=== PATIENT | female | born 1980 | race Caucasian/White ===

== ENCOUNTER 2016-09-12 11:59 | Outpatient (CLI) | payer SELFPAY ==
[~2016-09-12] VITALS: Ht 152.4 cm; Wt 50.8 kg
[~2016-09-12 11:59] MED LIST: TRAM50TA2 PO
[2016-09-12 12:04] VITALS: BP 138/91
[2016-09-12 12:35] LABS: BASOPHILS % (AUTO) 0 % (0-10); EOSINOPHILS % (AUTO) 1 % (0-10); LYMPHOCYTES # (AUTO) 1.4 X 10^3 (1.0-4.0); LYMPHOCYTES % (AUTO) 21 % (12-44); MEAN CORPUSCULAR HEMOGLOBIN 34 PG (25-34); MEAN CORPUSCULAR HGB CONC 34 G/DL (32-36); MEAN CORPUSCULAR VOLUME 98 FL (80-99); MEAN PLATELET VOLUME 11.4 FL (7.4-10.4); MONOCYTES # (AUTO) 0.5 X 10^3 (0.0-1.0); MONOCYTES % (AUTO) 8 % (0-12); NEUTROPHILS # (AUTO) 4.5 X 10^3 (1.8-7.8); NEUTROPHILS % (AUTO) 70 % (42-75); PLATELET COUNT 180 10^3/uL (130-400); RED BLOOD COUNT 4.31 10^6/uL (4.35-5.85); RED CELL DISTRIBUTION WIDTH 11.6 % (10.0-14.5); WHITE BLOOD COUNT 6.5 10^3/uL (4.3-11.0)
== END 2016-09-12 12:15 | disposition home or self-care (01) ==
LOC: PREOP 11:59
PROVIDERS: ATTEND Obstetrics & Gynecology
DX: Z01.812 Encounter for preprocedural laboratory examination (principal); Z11.2 Encounter for screening for other bacterial diseases; N87.1 Moderate cervical dysplasia; N81.4 Uterovaginal prolapse, unspecified
CPT/HCPCS: 36415; 85025; 86850; 86900; 86901; 87081

== ENCOUNTER 2017-01-15 13:00 | Outpatient (CLI) | payer MEDICAID ==
[~2017-01-15] VITALS: Ht 152.4 cm; Wt 50.8 kg
== END 2017-01-15 16:00 ==
LOC: PREOP 13:00
PROVIDERS: ATTEND Obstetrics & Gynecology
DX: Z01.818 Encounter for other preprocedural examination (principal); N87.1 Moderate cervical dysplasia; N81.4 Uterovaginal prolapse, unspecified

== ENCOUNTER 2017-01-18 05:59 | Day surgery (SDC) | payer MEDICAID ==
[~2017-01-18] VITALS: Ht 152.4 cm; Wt 50.8 kg
[2017-01-18] VITALS (7 sets, daily range): BP systolic 119–146; BP diastolic 83–96
--- OUTSIDE RECORDS SUMMARY | 2017-01-18 06:03 | XMS REPORT ---
Author Author MINESH GARNER Organization [employer] Address Unknown Phone Unavailable Care Team Providers Care Systems Trainer Name Role Phone MINESH GARNER CP Unavailable Allergies No Known Allergies Problems Problem Type Condition ICD-9 Code Onset Dates Condition Status Problem Unspecified constipation 564.00 Active Problem Irregular menstrual cycle 626.4 Active Problem Other disorder of menstruation and other abnormal bleeding from female genital tract 626.8 Active Problem Abdominal pain, left lower quadrant 789.04 Active Assessment Dental examination V72.2 Active Medications No Known Medications Procedures Procedure Coding System Code Date PRDONTAL SCAL&ROOT PLAN 1-3 TEETH CPT-4 D4342 November 19, 2014 PRDONTAL SCAL&ROOT PLAN 1-3 TEETH CPT-4 D4342 November 19, 2014 INTRAORL-PERIAPICAL 1 FILM 13477 CPT-4 D0220 November 19, 2014 INTRAORL-PERIAPICAL EA ADD FILM CPT-4 D0230 November 19, 2014 COMP ORAL EVALUATION - NEW/EST PT CPT-4 D0150 November 19, 2014 PRDONTAL SCAL&ROOT PLAN 1-3 TEETH CPT-4 D4342 November 19, 2014 PANORAMIC FILM SEE ALSO CODE 20810 CPT-4 D0330 November 19, 2014 PRDONTAL SCAL&ROOT PLAN 1-3 TEETH CPT-4 D4342 November 19, 2014 INTRAORL-PERIAPICAL EA ADD FILM CPT-4 D0230 November 19, 2014 INTRAORL-PERIAPICAL EA ADD FILM CPT-4 D0230 November 19, 2014 BITEWINGS - FOUR FILMS CPT-4 D0274 November 19, 2014 INTRAORL-PERIAPICAL EA ADD FILM CPT-4 D0230 November 19, 2014 Results No Known Results Summary Purpose [employer] Submission
--- OUTSIDE RECORDS SUMMARY | 2017-01-18 06:03 | XMS REPORT ---
Author Author SHRUTHI ANDERSON [facility] [place] [employer] Address Unknown Phone Unavailable Care Team Providers Care Geophysical Drafter Name Role Phone SHRUTHI ANDERSON CP Unavailable Allergies, Adverse Reactions, Alerts Substance Reaction Event Type N.K.D.A. Info Not Available Non Drug Allergy Problems Problem Type Condition Code Onset Dates Condition Status Problem Unspecified constipation 564.00 Active Problem Irregular menstrual cycle 626.4 Active Problem Other disorder of menstruation and other abnormal bleeding from female genital tract 626.8 Active Problem Abdominal pain, left lower quadrant 789.04 Active Assessment Physical exam, pre-employment Z02.1 Active Medications No Known Medications Procedures Procedure Coding System Code Date Preventive Care Est Pt. Age 18-39 CPT-4 82736 Mar 08, 2015 TB INTRADERMAL TEST CPT-4 33553 Mar 08, 2015 Vital Signs Date/Time: Mar 08, 2015 Temperature 98.0 F Weight 110 lbs Height 60 in BMI 21.48 Index Blood Pressure Diastolic 62 mmHg Blood Pressure Systolic 102 mmHg Cardiac Monitoring Heart Rate 78 bpm Results No Known Results Summary Purpose [employer] Submission
[2017-01-18] MEDS ORDERED: ONDANSETRON 4 MG/2 ML (SDV) Z0FRAN ONE (06:27)
[2017-01-18] MEDS ORDERED: LIDOCAINE PF 2% 5 ML (XYLOCAINE) VIAL ONE (06:27)
[2017-01-18] MEDS ORDERED: SEVOFLURANE (ULTANE) 15 ML INHAL SOLN ONE ×2 (06:27→11:35)
[2017-01-18] MEDS ORDERED: DEXAMETHASONE 10 MG/ML (DECADRON) 1 ML VIAL ONE (06:27)
[2017-01-18] MEDS ORDERED: proPOfol 200 MG/20 ML (DIPRIVAN) VIAL IV ONE (06:27)
[2017-01-18] MEDS ORDERED: ROCURONIUM 50 MG/5 ML (ZEMURON) VIAL IV ONE ×2 (06:27→10:13)
[2017-01-18] MEDS ORDERED: LACTATED RINGERS 1,000 ML IV ONE ×2 (06:27→10:13)
[2017-01-18] MEDS ORDERED: fentaNYL INJECTION 250 MCG/5 ML AMP ONE (06:27)
[2017-01-18] MEDS ORDERED: MIDAZOLAM 2 MG/2 ML (VERSED) VIAL ONE (06:27)
[2017-01-18 06:39] LABS: BASOPHILS % (AUTO) 0 % (0-10); EOSINOPHILS % (AUTO) 1 % (0-10); LYMPHOCYTES # (AUTO) 1.2 X 10^3 (1.0-4.0); LYMPHOCYTES % (AUTO) 22 % (12-44); MEAN CORPUSCULAR HEMOGLOBIN 34 PG (25-34); MEAN CORPUSCULAR HGB CONC 34 G/DL (32-36); MEAN CORPUSCULAR VOLUME 99 FL (80-99); MEAN PLATELET VOLUME 11.3 FL (7.4-10.4); MONOCYTES # (AUTO) 0.6 X 10^3 (0.0-1.0); MONOCYTES % (AUTO) 11 % (0-12); NEUTROPHILS # (AUTO) 3.4 X 10^3 (1.8-7.8); NEUTROPHILS % (AUTO) 65 % (42-75); PLATELET COUNT 209 10^3/uL (130-400); RED BLOOD COUNT 4.57 10^6/uL (4.35-5.85); RED CELL DISTRIBUTION WIDTH 11.9 % (10.0-14.5); WHITE BLOOD COUNT 5.2 10^3/uL (4.3-11.0)
[2017-01-18] MEDS ORDERED: ceFAZolin 1 GM/NS 50 ML IVPB IV ONE ×2 (07:00)
[2017-01-18] MEDS ORDERED: metroNIDAZOLE 500 MG/100 ML IVPB (PRE-MIX) IV ONE (07:00)
[2017-01-18] MEDS ORDERED: CATHETER FLUSH 10 ML SYR IV PRN (07:00)
[2017-01-18] MEDS: LACTATED RINGERS 1,000 ML IV PRN ×2 (07:04→09:17)
[2017-01-18] MEDS ORDERED: BUP/EPI 0.5% 1:200,000 (MARCAINE) 10ML VIAL IJ ONE (07:21)
--- NOTE | 2017-01-18 08:23 | Progress Note-Pre Operative ---
Pre-Operative Progress Note H&P Reviewed The H&P was reviewed, patient examined and no changes noted. Time Seen by Provider: 08:25 Date H&P Reviewed: Jan 18, 2017 Time H&P Reviewed: 08:15 Pre-Operative Diagnosis: WADE III, uterine prolapse RORY WHITE DO Jan 18, 2017 08:23
--- NOTE | 2017-01-18 09:03 | Operative Report ---
Operative Report Date of Procedure/Surgery Jan 18, 2017 Surgeon (s) RORY WHITE DO Oil Dispatcher (s): Na Post-Operative Diagnosis WADE III Procedure Performed LEEP in surgery Description of Procedure Anesthesia Type: General Estimated blood loss (mL): 20 Specimen(s) collected/removed cervical LEEP biopsy Description of the Procedure with informed consent the patient was taken to the operating room where general anesthesia was found to be adequate. I then placed a speculum in the vagina and the cervix was grasped with a tenaculum. acetic acid was placed. The below findings were seen. I then used a 10x10 mm loop and excised a portion of the most severe area and then sent this for pathology. the base was cauterized and the patient was set up for hysterectomy. There is 2-3+ descensus of the uterus. There is also a small rectocele. frozen section - WADE III with + borders but no invasive cervical caner in the specimen sent. Findings of the Procedure Extensive cervical dysplasia. Website Designer Leep was done (did not excise the entire lesion as I knew that hysterectomy would be accomplished). extensive AW changes, TZ seen. There was mosaicism but no exophytic lesions seen. Allergies and Home Medications Allergies Coded Allergies: No Known Drug Allergies (Verified , 09/05/07) Home Medications Docusate Sodium 100 Mg Capsule, 100 MG PO BID PRN for CONSTIPATION-1ST LINE, #60 Prescribed by: RORY WHITE on 01/18/17 1322 Hydrocodone/Acetaminophen 1 Each Tablet, 1-2 EA PO Q6H PRN for PAIN-MODERATE TO SEVERE, #45 Prescribed by: RORY WHITE on 01/18/17 1322 Ibuprofen 600 Mg Tablet, 600 MG PO Q6H PRN for PAIN-MILD, #60 Prescribed by: RORY WHITE on 01/18/17 1322 Simethicone 80 Mg Tab.chew, 40 MG PO TID PRN for INDIGESTION, #60 Prescribed by: RORY WHITE on 01/18/17 Marla2 RORY WHITE DO Jan 18, 2017 09:03
[2017-01-18] MEDS ORDERED: HYDROmorphone (DILAUDID) 2 MG/ML VIAL ONE (11:28)
[2017-01-18] MEDS ORDERED: morphine INJ 10 MG/ML 1ML (SYR OR VIAL) ONE (11:28)
[2017-01-18] MEDS: KETOROLAC 30 MG/ML VIAL IV PRN ×2 (11:30→18:24)
[2017-01-18] MEDS ORDERED: LACTATED RINGERS 1,000 ML IV SCH (11:35)
--- NOTE | 2017-01-18 11:44 | Operative Report ---
Operative Report Date of Procedure/Surgery Jan 18, 2017 Surgeon (s) RORY WHITE DO Appliance Counselor (s): LIONEL Rawls Post-Operative Diagnosis Cervical dysplasia/WADE III, enteropelvic adhesions, extensive, obliterated posterior culdesac, evidence of bilateral tubal interruptions, Procedure Performed RaTH, bilateral salpingectomy, extensive adhesiolysis (1 1/2 hours) Description of Procedure Anesthesia Type: General Estimated blood loss (mL): 150 Specimen(s) collected/removed uterus, bilateral tubes, cervical leep sent previously Description of the Procedure A Davis catheter was placed. A speculum was placed in the vagina. The cervix was visualized and the anterior lip was grasped with a sharp toothed tenaculum. The uterus was sounded and depth was approximately 10 centimeters. I placed the Michelle device. And then set the Michelle to 10 cm and a 3.0 cm collar was advanced over the cervix. I inserted the Michelle without difficulty, inflating the balloon and securing it around the fornix of the cervix. The collar was then secured with sutures at 12 o'clock. Attention was then turned to the patient's abdomen. A supraumbilical incision was made about 8 mm. A Veress needle was inserted and intraabdominal placement was confirmed with a drop in pressure and the saline drop test. I then insufflated the abdomen to a maximum of 15 mmHg with warmed CO2 gas. I then placed a 8 mm trocar and then the Da Dominguez camera and intraperitoneal placement was confirmed. The above menstioned findings were seen. I then determined the procedure could be continued robotically. The first robotic port was placed about 12 cm lateral to the right and left of the umbilical placement and slightly inferior. These are both 8 mm trocars. These were placed under direct visualization of the laparoscope. 0.25% Marcaine was injected prior to placement of all trocars. When all placements were confirmed, the patient was placed in steep Trendelenburg allowing adequate visualization and the robot was brought in for docking. The docking was accomplished without difficulty. A survey of the pelvis confirmed the above mentioned findings. I then took over the command of the robot utilizing the Bipolar forceps and monopolar walter. Initially I had to take down the adhesions and dissect out the tubes and ovaries. Once this was completed, I performed bilateral salpingectomy by dissecting along the mesosalpinx bilaterally and then transecting at the cornu. I was able to visualize the round ligaments bilaterally and grasped them and cauterized with bipolar cautery and then cut with my walter. At this point, I then did bilateral salpingectomy. I incised the mesosalpinx bilaterally. I then moved to the uteroovarian ligaments. I sealed the vessel and transected bilaterally using the bipolar cautery and then cut with the monopolar walter. I then moved my dissection to the posterior leaves of the broad ligament. I dissected the posterior leaves of the broad ligament off the uterine arteries skeletonizing them bilaterally. I then took a second clamp with the bipolar cautery and with the walter, transected the vessels away from the lateral aspect to the cervical stroma. I dissected the anterior peritoneum off the lower uterine segment. I continually pushed the bladder back and I took excessively great care and I was eventually able to dissect the vesicouterine peritoneum off the lower uterine segment. I then dissected in a V fashion towards the midline between the uterosacral ligaments. This allowed me to skeletonize the uterine vessels bilaterally. The balloon on the MICHELLE was insufflated. This allowed me to see the MICHELLE circumferentially. I then performed a colpotomy anteriorly and then amputate with cervix away from the vaginal fornix. I then continued the colpotomy circumferentially. Once this was performed, the respiratory assistant removed the uterus and the tubes through the vagina. A sponge was left in the vagina to maintain pneumoperitoneum. I then began closure of the vaginal cuff. I closed the apices of the vaginal cuff with 2-0 Vicryl V lock sutures with a colposuspension through the uterosacral ligaments. This suspended the apices of the vaginal cuff. I extended this to the midline from both sides and overlapped the V lock sutures in the midline. Excellent closure is noted and hemostasis is achieved. All the needles were removed from the patient's abdomen. Now, the robotic instruments were removed and the robot was docked back to laparoscopy. The pelvis was irrigated. At this point I repeated an exam of the pelvis laparoscopically. The pelvis was irrigated. There was no active bleeding noted. Bilateral ureters were seen the entire time during the surgery and were peristalsing. The trocars were removed under direct visualization. The laparoscopic sites were visualized and found to be hemostatic. The trocar sites were injected with 0.25% Marcaine. I closed the skin incisions were closed with 4-0 Monocryl in a subcuticular fashion and then with Dermabond. Op sites were placed over the incision sites. The instruments were removed from the vagina and I noted there were no abrasions. Sponge, lap, needle and instrument counts correct times two. Findings of the Procedure LEEP without evidence of invasive cancer. Confirmed WADE III Extensive peritubal adhesions and obliteration of the culdesac with adhesions. Also scarring of the omentum to the right pelvic side wall overlying the appendix. The appendix was scarred to the side wall but there was no evidence of infection. Once dissection of the adhesions was completed, the ovaries and tubes appeared normal. Benign cysts on the ovaries. No evidence of endometriosis. Evidence of tubal interruption bilaterally with clips. The right tube was extended into the pelvis with a cystic lesion noted on the posterior uterus near the cervix. However, once dissection was completed, this was noted to be contiguous with the tube on the right and had a clip attached consistent with previous tubal interruption. Allergies and Home Medications Allergies Coded Allergies: No Known Drug Allergies (Verified , 09/05/07) Home Medications Docusate Sodium 100 Mg Capsule, 100 MG PO BID PRN for CONSTIPATION-1ST LINE, #60 Prescribed by: RORY WHITE on 01/18/17 1322 Hydrocodone/Acetaminophen 1 Each Tablet, 1-2 EA PO Q6H PRN for PAIN-MODERATE TO SEVERE, #45 Prescribed by: RORY WHITE on 01/18/17 1322 Ibuprofen 600 Mg Tablet, 600 MG PO Q6H PRN for PAIN-MILD, #60 Prescribed by: RORY WHITE on 01/18/17 1322 Simethicone 80 Mg Tab.chew, 40 MG PO TID PRN for INDIGESTION, #60 Prescribed by: RORY WHITE on 01/18/17 Marla2 RORY WHITE DO Jan 18, 2017 11:44
[2017-01-18] MEDS ORDERED: HYDROcodone/APAP 7.5 MG/325 MG (LORTAB, LORCET PLUS) TABLET PO PRN (11:45)
[2017-01-18] MEDS ORDERED: ANTACID SUSP 30 ML UDC (MYLANTA) PO PRN (11:45)
[2017-01-18] MEDS ORDERED: SIMETHICONE 80 MG (MYLICON) CHEW PO PRN (11:45)
[2017-01-18] MEDS ORDERED: KETOROLAC 30 MG/ML VIAL IVP PRN (11:45)
[2017-01-18] MEDS ORDERED: DOCUSATE SODIUM 100 MG (COLACE) CAP PO PRN (11:45)
[2017-01-18] MEDS ORDERED: HYDROmorphone (DILAUDID) 2 MG/ML VIAL IVP PRN (11:45)
[2017-01-18] MEDS ORDERED: ONDANSETRON 4 MG/2 ML (SDV) Z0FRAN IV PRN (11:45)
[2017-01-18 12:23] LABS: ANION GAP 12 MMOL/L (5-14); BLOOD UREA NITROGEN 7 MG/DL (7-18); BUN/CREATININE RATIO 9; CALCIUM 8.8 MG/DL (8.5-10.1); CARBON DIOXIDE 20 MMOL/L (21-32); CHLORIDE 105 MMOL/L (98-107); CREATININE SERUM 0.74 MG/DL (0.60-1.30); GFR ESTIMATED > 60; GLUCOSE 126 MG/DL (70-105); POTASSIUM 4.3 MMOL/L (3.6-5.0); SODIUM 137 MMOL/L (135-145)
[2017-01-18] MEDS ORDERED: ONDANSETRON 4 MG/2 ML (SDV) Z0FRAN IVP ONE (13:15)
[2017-01-18] MEDS ORDERED: DOCU100C37 PO (13:22)
[2017-01-18] MEDS ORDERED: SIME80TA16 PO (13:22)
[2017-01-18] MEDS ORDERED: HYDR-3816 PO (13:22)
[2017-01-18] MEDS ORDERED: IBUP-1773 PO (13:22)
--- NOTE | 2017-01-18 13:24 | Discharge Inst-Women's Service ---
Discharge Inst-Women's Serv Depart Medication/Instructions New, Converted or Re-Newed RX: RX on Chart Final Diagnosis cervical dysplasia/WADE III Enteropelvic adhesions, extensive uterine prolapse Consults/Follow Up Additional Follow Up: Yes (1 week with Samantha for incision check and 8-10 weeks for Post operative exam) Activity Activity: Activity as Tolerated (no lifting over 25 lbs. NOTHING in the vagina ) Driving Instructions: No Driving for 1 Week NO SMOKING: NO SMOKING Nothing Inside Vagina: No Douching, No Dunn (NOTHING in the vagina until after cleared at 8-10 week visit ), No Tampons Diet Discharge Diet: No Restrictions Symptoms to Report to : Bleeding Excessive, Pain Increased, Fever Over 101 Degrees F, Vaginal Bleeding Increase, Vaginal Discharge Foul For Any Problems or Questions: Contact Your Physician Skin/Wound Care Infection Signs and Symptoms: Increased Redness, Foul Odor of Wound, Increased Drainage, Skin Itchy or Has a Rash, Increased Swelling, Temperature Above 101 F Operative Area Clean and Dry: Keep Incision Clean/Dry Stitches/Blanchard/Dermabond: Dermabond Bathing Instructions: RORY Naranjo DO Jan 18, 2017 13:24
[2017-01-18] MEDS ORDERED: NS IV 1000 ML 1,000 ML IV SCH (14:45)
[2017-01-19] MEDS ORDERED: IBUPROFEN 600 MG (MOTRIN) TAB PO ONE (00:06)
[2017-01-19 00:17] VITALS: BP 147/93
[2017-01-19] MEDS: IBUPROFEN 600 MG (MOTRIN) TAB PO PRN ×2 (00:17→06:16)
[2017-01-19 06:32] LABS: ANION GAP 8 MMOL/L (5-14); BLOOD UREA NITROGEN 5 MG/DL (7-18); BUN/CREATININE RATIO 7; CALCIUM 8.3 MG/DL (8.5-10.1); CARBON DIOXIDE 22 MMOL/L (21-32); CHLORIDE 108 MMOL/L (98-107); CREATININE SERUM 0.69 MG/DL (0.60-1.30); GFR ESTIMATED > 60; GLUCOSE 92 MG/DL (70-105); POTASSIUM 3.8 MMOL/L (3.6-5.0); SODIUM 138 MMOL/L (135-145)
[2017-01-19 08:30] VITALS: BP 115/74
[2017-01-19 09:45] VITALS: BP 115/74
[2017-01-20] MEDS ORDERED: INFLUENZA TRIvalent 2017-2018 0.5 ML/45 MCG SYR IM ONE (09:00)
--- NOTE | 2017-01-20 21:07 | Anesthesia-General Post-Op ---
General Patient Condition Mental Status/LOC: Same as Preop Cardiovascular: Satisfactory Nausea/Vomiting: Absent Respiratory: Satisfactory Pain: Controlled Complications: Absent Post Op Complications Complications None Follow Up Care/Instructions Patient Instructions None needed. Anesthesia/Patient Condition Patient Condition Patient is doing well, no complaints, stable vital signs, no apparent adverse anesthesia problems. No complications reported per nursing. D/C home per [facility] [place] Criteria: Yes ZAYDA THOMPSON CRNA Jan 20, 2017 21:07
== END 2017-01-19 09:45 | disposition home or self-care (01) ==
LOC: SDC 05:59 → WS 12:45 → SDC 01-19 09:45
PROVIDERS: ATTEND Obstetrics & Gynecology
DX: N87.1 Moderate cervical dysplasia (principal); N81.4 Uterovaginal prolapse, unspecified; N73.6 Female pelvic peritoneal adhesions (postinfective); N80.0 Endometriosis of uterus; F17.210 Nicotine dependence, cigarettes, uncomplicated
CPT/HCPCS: 36415; 80048; 84703; 85025; 86850; 86900; 86901; 87081; 88307; 88309; 88331; 88332; 94664

== ENCOUNTER 2020-11-29 10:29 | Emergency (ER) | payer MEDICAID ==
[~2020-11-29] VITALS: Ht 152.4 cm; Wt 45.4 kg
[~2020-11-29 10:29] MED LIST changes: +DOCU100C37 PO; +HYDR-34 PO; +IBUP-1773 PO; +SIME80TA16 PO
[2020-11-29 11:05] LABS: BASOPHILS % (AUTO) 1 % (0-10); EOSINOPHILS % (AUTO) 1 % (0-10); HEMATOCRIT 30 % (35-52); HEMOGLOBIN 10.4 g/dL (11.5-16.0); LYMPHOCYTES % (AUTO) 16 % (12-44); MEAN CORPUSCULAR HEMOGLOBIN 37 pg (25-34); MEAN CORPUSCULAR HGB CONC 35 g/dL (32-36); MEAN CORPUSCULAR VOLUME 104 fL (80-99); MEAN PLATELET VOLUME 10.4 fL (9.0-12.2); MONOCYTES # (AUTO) 0.5 10^3/uL (0.0-1.0); MONOCYTES % (AUTO) 8 % (0-12); NEUTROPHILS # (AUTO) 4.8 10^3/uL (1.8-7.8); NEUTROPHILS % (AUTO) 75 % (42-75); PLATELET COUNT 191 10^3/uL (130-400); WHITE BLOOD COUNT 6.4 10^3/uL (4.3-11.0)
[2020-11-29 11:07] LABS: CLARITY,URINE CLEAR; COLOR,URINE YELLOW; GLUCOSE, URINE (UA) TRACE (NEGATIVE); KETONES,URINE 1+ (NEGATIVE); LEUKOCYTE ESTERASE ,URINE 1+ (NEGATIVE); NITRITE,URINE NEGATIVE (NEGATIVE); PH,URINE 5.5 (5-9); PROTEIN,URINE 2+ (NEGATIVE)
[2020-11-29 11:20] LABS: ALBUMIN 4.2 GM/DL (3.2-4.5); CHLORIDE 103 MMOL/L (98-107); POTASSIUM 3.7 MMOL/L (3.6-5.0); SODIUM 141 MMOL/L (135-145)
[2020-11-29 11:22] LABS: CALCIUM 9.5 MG/DL (8.5-10.1)
[2020-11-29 11:23] LABS: AMPHETAMINE SCREEN, URINE NEGATIVE (NEGATIVE); BARBITURATE SCREEN URINE NEGATIVE (NEGATIVE); BENZODIAZEPINES SCREEN URINE NEGATIVE (NEGATIVE); CANNABINOID SCREEN, URINE NEGATIVE (NEGATIVE); COCAINE SCREEN URINE NEGATIVE (NEGATIVE); METHADONE STAT NEGATIVE (NEGATIVE); METHAMPHETAMINE SCREEN URINE S NEGATIVE (NEGATIVE); OPIATE SCREEN URINE NEGATIVE (NEGATIVE); OXYCODONE STAT NEGATIVE (NEGATIVE); PROPOXYPHENE STAT NEGATIVE (NEGATIVE); TRICYCLIC ANTIDEPRESSANTS SCRE NEGATIVE (NEGATIVE)
[2020-11-29 11:23] LABS: GLUCOSE 83 MG/DL (70-105); TOTAL PROTEIN 7.5 GM/DL (6.4-8.2)
[2020-11-29 11:24] LABS: CARBON DIOXIDE 23 MMOL/L (21-32)
[2020-11-29 11:25] LABS: BILIRUBIN,TOTAL 0.4 MG/DL (0.1-1.0)
[2020-11-29 11:26] LABS: ALKALINE PHOSPHATASE 80 U/L (40-136)
[2020-11-29 11:27] LABS: CREATININE SERUM 0.67 MG/DL (0.60-1.30); GFR ESTIMATED 97
--- NOTE | 2020-11-29 11:27 | Diagnostic Imaging Report ---
EXAMINATION: CT head and CT cervical spine without contrast. TECHNIQUE: Multiple contiguous axial images were obtained through the brain and cervical spine without the use of intravenous contrast. Sagittal and coronal reformations through the cervical spine were then performed. All CT scans use one or more of the following dose optimizing techniques: Automated exposure control, MA and/or KvP adjustment based on patient size and exam type or iterative reconstruction. HISTORY: Neurologic deficit. COMPARISON: None available. FINDINGS: The negron-white matter differentiation is normal. No mass effect or midline shift. The ventricles are normal in size and configuration. Basilar cisterns are patent. There are no intra- or extra-axial fluid collections. There is no intracranial hemorrhage. The orbits are normal. Paranasal sinuses are normal. Mastoid air cells are clear. No soft tissue abnormality is seen. No osseous lesions or fractures are seen. The alignment of the cervical spine is normal. No fracture is seen. Vertebral body heights are normal. The craniocervical junction is normal. There is no degenerative disease in the cervical spine. There is no spinal canal stenosis. No soft tissue abnormality is seen in the neck. Limited views of the superior thorax are normal. IMPRESSION: 1. No acute intracranial abnormality. 2. No cervical spine fracture. Dictated by: Dictated on workstation # [id number]
[2020-11-29 11:28] LABS: BUN/CREATININE RATIO 9
[2020-11-29 11:29] LABS: ALANINE AMINOTRANSFERASE 33 U/L (0-55)
[2020-11-29 11:35] LABS: BACTERIA,URINE LARGE /HPF; RBC,URINE TNTC /HPF; WBC,URINE TNTC /HPF
--- NOTE | 2020-11-29 11:35 | Diagnostic Imaging Report ---
INDICATION: Acute onset numbness, pain FINDINGS: The lungs are clear. There is no failure, effusion or pneumothorax. Cardiomediastinal and hilar contours normal. No chest wall pathology. The visualized bowel gas pattern normal. IMPRESSION: Unremarkable frontal view of the chest Dictated by: Dictated on workstation # [id number]
[2020-11-29 11:36] LABS: HYALINE CASTS, URINE >50 /LPF; SQUAMOUS EPITHELIAL CELL,UR >50 /HPF
[2020-11-29 11:49] LABS: TSH (THYROID ANALYZER) 0.95 UIU/ML (0.35-4.94)
[2020-11-29 11:57] LABS: BILIRUBIN,URINE 1+ (NEGATIVE)
[2020-11-29] MEDS ORDERED: HOLD METFORMIN - RECEIVED CONTRAST 20 ML VIAL IV SCH (12:45)
[2020-11-29] MEDS ORDERED: IOHEXOL 350 MG/ML 100 ML (OMNIPAQUE 350) VIAL IV ONE (12:45)
[2020-11-29] MEDS ORDERED: NS 100 ML (IVPB) BAG IV ONE (12:45)
[2020-11-29] MEDS ORDERED: CATHETER FLUSH 10 ML SYR IV PRN (12:45)
[2020-11-29 13:00] LABS: FIBRIN DEGRADATION PRODUCTS 0.6 UG/ML (0.00-0.49); INR 0.9 (0.8-1.4)
--- NOTE | 2020-11-29 14:21 | Diagnostic Imaging Report ---
PROCEDURE: CT angiography Chest TECHNIQUE: After intravenous administration of contrast, thin section axial CT angiography of the chest was performed. 3D MIP reconstructions were made. All CT scans use one or more of the following dose optimizing techniques: automated exposure control, MA and/or KvP adjustment based on a patient size and exam type, or iterative reconstruction. INDICATION: Acute onset numbness and pain, high probability of PE COMPARISON: None available. FINDINGS: Vasculature: No pulmonary emboli. No CT evidence of pulmonary hypertension or right ventricular strain. Thoracic aorta is normal in caliber. No aortic dissection or pseudoaneurysm. Heart and mediastinum: Visualized thyroid is normal. No supraclavicular, axillary, or intra-thoracic lymphadenopathy. The heart is normal in size without pericardial effusion. Pleura: No pleural effusion or pneumothorax. Lungs and airway: No endoluminal lesion in the trachea or central bronchi. No pulmonary mass, nodule or consolidation. Upper abdomen: Allowing for the phase of contrast, no acute abnormality in the upper abdomen is seen. Musculoskeletal: No concerning osseous lesion. IMPRESSION: 1. No acute cardiopulmonary process. Specifically, no pulmonary emboli or acute aortic syndrome. Dictated by: Dictated on workstation # [id number]
--- NOTE | 2020-11-29 14:53 | ED Neurological Problem ---
General Chief Complaint: Neurological Problems Stated Complaint: R SIDE NUMBNESS Nursing Triage Note: PT TO RM 7 PER WC W C/O SUDDEN NUMBNESS & POOR ROM TO RT ANKLE. PT ALSO C/O NUMBNESS OF RT PINKY THAT GOES DOWN THE SIDE OF HER HAND. PT REPORTS SYMPTOMS SX SHE WOKE UP ON SATURDAY MORNING. PT RECALLS FEELING NORMAL SATURDAY NIGHT BEFORE BED. PT SAW CHIROPRACTOR YESTERDAY WHO ADJUSTED HER NECK AND BACK. PT STATES CHIROPRACTOR RECOMMENDED PT COME TO ED FOR FURTHER EVALUATION. PT DENIES INJURY, PAIN, SLURRED SPEECH, AND VISION CHANGES. Source: patient Exam Limitations: no limitations History of Present Illness Date Seen by Provider: Nov 29, 2020 Time Seen by Provider: 14:49 Initial Comments This 40-year-old woman presents to the emergency room with last known well time of November 25. She woke up on the next morning with right sided foot drop and numbness in the foot and right lateral lower leg. At the same time she also noted numbness in the ulnar aspect of the right hand. She has had some difficulty walking as the foot drop makes her susceptible to tripping. She is notably tachycardic which she states is from anxiety. She denies any drug or alcohol use. She denies any symptoms of infectious illness such as fever, cough, diarrhea, rashes, etc. She presented to her chiropractor for adjustment before coming to the emergency room. Her primary care provider is Dr. Morataya. Her obstetrical providers are Dr. Martins and Dr. White. Her chiropractor is Dr. Francesco Arora. Allergies and Home Medications Allergies Coded Allergies: No Known Drug Allergies (Verified , 09/05/07) Home Medications Cephalexin 500 Mg Tablet, 500 MG PO TID Prescribed by: NORMA ROSAS on 11/29/20 1536 Docusate Sodium 100 Mg Capsule, 100 MG PO BID PRN for CONSTIPATION-1ST LINE Prescribed by: RORY WHITE on 01/18/17 1322 Hydrocodone Bit/Acetaminophen 1 Each Tablet, 1-2 EA PO Q6H PRN for PAIN-MODERATE TO SEVERE Prescribed by: RROY WHITE on 01/18/17 1322 Ibuprofen 600 Mg Tablet, 600 MG PO Q6H PRN for PAIN-MILD Prescribed by: RORY WHITE on 01/18/17 1322 Simethicone 80 Mg Tab.chew, 40 MG PO TID PRN for INDIGESTION Prescribed by: RORY WHITE on 01/18/17 1322 Patient Home Medication List Home Medication List Reviewed: Yes Past Ufrcazf-[id number]-[id number] Hx Patient Social History Tobacco Use?: Yes Tobacco type used: Cigarettes Smoking Status: Current Everyday Smoker Substance use?: No Alcohol Use?: Yes Alcohol Frequency: Once in a while Pt feels they are or have been: No Immunizations Up To Date Tetanus Booster (TDap): Unknown First/Initial COVID19 Vaccinat: 07/21/2020 COVID19 Vaccine T[employer] Retreader: [facility] Seasonal Allergies Seasonal Allergies: Yes Past Medical History Surgeries: Yes Tubal Ligation Respiratory: No Cardiac: No Neurological: No Reproductive Disorders: Yes Genitourinary: No Gastrointestinal: No Musculoskeletal: No Endocrine: No HEENT: No Cancer: No Psychosocial: No Integumentary: No Blood Disorders: No Family Medical History Not obtainable due to adoption Physical Exam Vital Signs Vital Signs - First Documented 11/29/20 10:30 Temp 36.9 Pulse 130 Resp 20 B/P (MAP) 118/102 (107) Pulse Ox 98 O2 Delivery Room Air Capillary Refill : Less Than 3 Seconds Height, Weight, BMI Height: 5'0.00" Weight: 112lbs. 0.0oz. [id number]; 19.00 BMI Method:Stated Progress/Results/Core Measures Results/Orders Lab Results Laboratory Tests Test 11/29/20 10:37 11/29/20 10:50 11/29/20 10:55 Range/Units Glucometer 99 70-110 MG/DL Urine Color YELLOW Urine Clarity CLEAR Urine pH 5.5 5-9 Urine Specific [place] >=1.030 1.016-1.022 Urine Protein 2+ H NEGATIVE Urine Glucose (UA) TRACE H NEGATIVE Urine Ketones 1+ H NEGATIVE Urine Nitrite NEGATIVE NEGATIVE Urine Bilirubin 1+ H NEGATIVE Urine Urobilinogen 1.0 < = 1.0 MG/DL Urine Leukocyte Esterase 1+ H NEGATIVE Urine RBC (Auto) 3+ H NEGATIVE Urine RBC TNTC H /HPF Urine WBC TNTC H /HPF Urine Squamous Epithelial Cells >50 H /HPF Urine Crystals NONE /LPF Urine Bacteria LARGE H /HPF Urine Casts NONE /LPF Urine Hyaline Casts >50 H /LPF Urine Mucus LARGE H /LPF Urine Culture Indicated YES Urine Opiates Screen NEGATIVE NEGATIVE Urine Oxycodone Screen NEGATIVE NEGATIVE Urine Methadone Screen NEGATIVE NEGATIVE Urine Propoxyphene Screen NEGATIVE NEGATIVE Urine Barbiturates Screen NEGATIVE NEGATIVE Ur Tricyclic Antidepressants Screen NEGATIVE NEGATIVE Urine Phencyclidine Screen NEGATIVE NEGATIVE Urine Amphetamines Screen NEGATIVE NEGATIVE Urine Methamphetamines Screen NEGATIVE NEGATIVE Urine Benzodiazepines Screen NEGATIVE NEGATIVE Urine Cocaine Screen NEGATIVE NEGATIVE Urine Cannabinoids Screen NEGATIVE NEGATIVE White Blood Count 6.4 4.3-11.0 10^3/uL Red Blood Count 2.85 L 3.80-5.11 10^6/uL Hemoglobin 10.4 L 11.5-16.0 g/dL Hematocrit 30 L 35-52 % Mean Corpuscular Volume 104 H 80-99 fL Mean Corpuscular Hemoglobin 37 H 25-34 pg Mean Corpuscular Hemoglobin Concent 35 32-36 g/dL Red Cell Distribution Width 12.9 10.0-14.5 % Platelet Count 191 130-400 10^3/uL Mean Platelet Volume 10.4 9.0-12.2 fL Immature Granulocyte % (Auto) 0 % Neutrophils (%) (Auto) 75 42-75 % Lymphocytes (%) (Auto) 16 12-44 % Monocytes (%) (Auto) 8 0-12 % Eosinophils (%) (Auto) 1 0-10 % Basophils (%) (Auto) 1 0-10 % Neutrophils # (Auto) 4.8 1.8-7.8 10^3/uL Lymphocytes # (Auto) 1.0 1.0-4.0 10^3/uL Monocytes # (Auto) 0.5 0.0-1.0 10^3/uL Eosinophils # (Auto) 0.0 0.0-0.3 10^3/uL Basophils # (Auto) 0.0 0.0-0.1 10^3/uL Immature Granulocyte # (Auto) 0.0 0.0-0.1 10^3/uL Prothrombin Time 12.0 L 12.2-14.7 SEC INR Comment 0.9 0.8-1.4 Activated Partial Thromboplast Time 30 24-35 SEC D-Dimer 0.60 H 0.00-0.49 UG/ML Sodium Level 141 135-145 MMOL/L Potassium Level 3.7 3.6-5.0 MMOL/L Chloride Level 103 98-107 MMOL/L Carbon Dioxide Level 23 21-32 MMOL/L Anion Gap 15 H 5-14 MMOL/L Blood Urea Nitrogen 6 L 7-18 MG/DL Creatinine 0.67 0.60-1.30 MG/DL Estimat Glomerular Filtration Rate 97 BUN/Creatinine Ratio 9 Glucose Level 83 70-105 MG/DL Calcium Level 9.5 8.5-10.1 MG/DL Corrected Calcium 9.3 8.5-10.1 MG/DL Total Bilirubin 0.4 0.1-1.0 MG/DL Aspartate Amino Transf (AST/SGOT) 71 H 5-34 U/L Alanine Aminotransferase (ALT/SGPT) 33 0-55 U/L Alkaline Phosphatase 80 40-136 U/L Troponin I < 0.028 <0.028 NG/ML Total Protein 7.5 6.4-8.2 GM/DL Albumin 4.2 3.2-4.5 GM/DL TSH [place] Testing 0.95 0.35-4.94 UIU/ML My Orders Orders - NORMA SCHULTZ MD Cbc With Automated Diff (11/29/20 10:46) Protime With Inr (11/29/20 10:46) Partial Thromboplastin Time (11/29/20 10:46) Comprehensive Metabolic Panel (11/29/20 10:46) Fibrin Degradation Products (11/29/20 10:46) Troponin I (11/29/20 10:46) Ua Culture If Indicated (11/29/20 10:46) Chest 1 View, Ap/Pa Only (11/29/20 10:46) Ekg Tracing (11/29/20 10:46) Nothing By Mouth (11/29/20 Lunch) Accucheck Stat ONCE (11/29/20 10:46) Ed Iv/Invasive Line Start (11/29/20 10:46) Ed Iv/Invasive Line Start (11/29/20 10:46) Vital Signs Stroke Patient Q15M (11/29/20 10:46) O2 (11/29/20 10:46) Intake & Output 06,14,22 (11/29/20 10:46) Monitor-Rhythm Ecg Trace Only (11/29/20 10:46) Dysphagia Screening Tool (11/29/20 10:46) Drug Screen Stat (Urine) (11/29/20 10:46) Thyroid Analyzer (11/29/20 10:46) Ct Head/Cervical Spine Wo (11/29/20 10:46) Urine Culture (11/29/20 10:50) Ct Angio Chest W (11/29/20 12:41) Iohexol Injection (Omnipaque 350 Mg/Ml 1 (11/29/20 12:45) Received Contrast (Hold Metformin- Contr (11/29/20 12:45) Sodium Chloride Flush (Catheter Flush Sy (11/29/20 12:45) Ns (Ivpb) (Sodium Chloride 0.9% Ivpb Bag (11/29/20 12:45) Ceftriaxone (Rocephin) (11/29/20 15:00) Medications Given in ED Current Medications Medications Dose Ordered Sig/Flores Route Start Time Stop Time Status Last Admin Dose Admin Ceftriaxone Sodium 1000 mg/ Sterile Water 10 ml @ 200 mls/hr ONCE ONCE IV 11/29/20 15:00 11/29/20 15:02 DC 11/29/20 15:04 200 MLS/HR Iohexol 75 ml ONCE ONCE IV 11/29/20 12:45 11/29/20 12:47 DC 11/29/20 13:10 50 ML Sodium Chloride 10 ml NEEDED PRN IV 11/29/20 12:45 11/29/20 15:54 DC 11/29/20 13:10 10 ML Sodium Chloride 100 ml ONCE ONCE IV 11/29/20 12:45 11/29/20 12:47 DC 11/29/20 13:10 80 ML Vital Signs/I&O 11/29/20 11/29/20 10:30 15:30 Temp 36.9 Pulse 130 101 Resp 20 18 B/P (MAP) 118/102 (107) 126/106 Pulse Ox 98 98 O2 Delivery Room Air Room Air Blood Pressure Mean: 107 FSBG Bedside Testing Finger Stick Blood Glucose: 99 Blood Glucose Action Taken: DR. SCHULTZ NOTIFIED Progress Progress Note : Progress Note Initial noncontrast CT of the head and cervical spine were unremarkable. I discussed the symptoms with Dr. Nichole, neurologist at [facility]. He recommended MRI of the brain without contrast as well as MRA of the brain w/o contrast and MRA of the neck with contrast. After discussion with Dr. Figueredo, we determine based on the quality of our instrumentation CT angiogram would be a better study for evaluation of the vasculature of head and neck. Unfortunately, due to provider error, a CT angiogram was performed of the chest rather than head and neck. No abnormalities were seen on the visualized portions of the carotid arteries on this study. Patient was notified of the situation and offered CT angiogram of the head and neck tomorrow as well as MRI imaging during the ER visit. CT angio of the head and neck cannot be obtained today due to contrast dosing l imitations. After discussion of risks and benefits of options, patient wished to forego all further imaging in the emergency room citing anxiety as the primary reason. She was offered Ativan to help facilitate imaging but she declined. Risks of leaving the hospital without understanding the etiology of her symptoms were discussed. She is aware that there are some potentially very dangerous risks, and she expresses understanding. Patient was found to have urinary tract infection and was treated with Rocephin prior to discharge. Initial ECG Impression Date: Nov 29, 2020 Initial ECG Impression Time: 11:39 Initial ECG Rate: 93 Initial ECG Rhythm: Normal Sinus Comment Sinus rhythm with no ST elevation or depression. No axis deviation. NM interval 108 ms. Departure Impression Primary Impression: Right foot drop Additional Impressions: Right hand paresthesia Urinary tract infection Qualified Codes: N39.0 - Urinary tract infection, site not specified Disposition: 01 HOME, SELF-CARE Condition: Improved Departure-Patient Inst. Decision time for Depature: 14:53 [place]: [facility] [place] Care Physician Patient Instructions: Foot Drop, Paresthesia (DC), Urinary Tract Infection, Adult (DC) Add. Discharge Instructions: Drink plenty of clear liquids to stay well-hydrated. You appear a bit dry on your urine specimen. Increase your intake of water and other clear liquids. Complete your antibiotics as prescribed for urinary tract infection. Follow-up with your primary care provider as soon as possible. Follow-up should be within 1 week. You need to discuss several things with your primary care provider includin) Review of your urine culture to ensure the antibiotic you are taking is appropriate for the bacteria that is causing your infection after the cultures are resulted. 2) You also need to have a repeat urine specimen collected after you finish antibiotics to ensure the blood and infection clears. 3) You should additionally discuss further work-up for your neurologic symptoms which might include MRI of the head and/or CT angiogram of the head and neck. Take aspirin 81 mg daily until otherwise instructed. Work toward quitting smoking as rapidly as possible. Call with questions or concerns. Return to the emergency room if you have worsening symptoms. All discharge instructions reviewed with patient and/or family. Voiced understanding. Scripts Cephalexin (Cephalexin) 500 Mg Tablet 500 MG PO TID, #20 TAB Prov: NORMA SCHULTZ MD 11/29/20 Copy Copies To 1: BECKY MORATAYA MD, JOSHUA T MD Nov 29, 2020 14:53
[2020-11-29] MEDS ORDERED: cefTRIAXone 1,000 MG in WATER (STERILE) FOR INJECTION 10 ML IV ONE (15:00)
[2020-11-29 15:30] VITALS: BP 126/106
[2020-11-29] MEDS ORDERED: CEPH500T PO (15:36)
== END 2020-11-29 15:30 | disposition home or self-care (01) ==
LOC: EDUNIT# 10:29 → ER 10:30
DX: M21.371 Foot drop, right foot (principal); R20.2 Paresthesia of skin; N39.0 Urinary tract infection, site not specified; F41.9 Anxiety disorder, unspecified; F17.210 Nicotine dependence, cigarettes, uncomplicated
CPT/HCPCS: 36415; 70450; 71045; 71275; 72125; 80053; 80306; 81000; 82947; 84443; 84484; 85025; 85379; 85610; 85730; 87077; 87088; 87186; 93005; 93041

== ENCOUNTER → 2020-12-22 | Outpatient (CLI) | payer MEDICAID ==
[~2020-12-22] MED LIST changes: +CATHETER FLUSH 10 ML SYR IV PRN; +CEPH500T PO; +HOLD METFORMIN - RECEIVED CONTRAST 20 ML VIAL IV SCH; +IOHEXOL 350 MG/ML 100 ML (OMNIPAQUE 350) VIAL IV ONE; +NS 100 ML (IVPB) BAG IV ONE
--- NOTE | 2020-12-22 12:15 | Diagnostic Imaging Report ---
PROCEDURE: MR imaging of the brain without contrast. TECHNIQUE: Multiplanar, multisequence MR imaging of the brain was performed without contrast. INDICATION: Right foot drop and right hand numbness. No prior MRI brain studies are available for comparison. The diffusion-weighted images are unremarkable. No diffusion restriction is identified to suggest acute ischemia. The normal expected flow-voids within the carotid siphons are seen. Ventricular size and sulcal pattern appear normal. No white matter lesions are identified. No acute intra-axial or extra-axial hemorrhage is detected. The corpus callosum is unremarkable. The sella and parasellar structures are unremarkable. IMPRESSION: Unremarkable noncontrast MRI of the brain. Dictated by: Dictated on workstation # [id number]
--- NOTE | 2020-12-22 12:58 | Diagnostic Imaging Report ---
PROCEDURE: CT angiography of the head and CT angiography of the neck with and without contrast. TECHNIQUE: Contiguous noncontrast images were obtained from the skull base through the vertex. After intravenous contrast administration, helical CT angiography of the neck was performed. Source data was reformatted into 3D MIP projections. Delayed post contrast acquisition was also obtained. Auto Exposure Controls were utilized during the CT exam to meet ALARA standards for radiation dose reduction. INDICATION: Right foot and hand paralysis a week ago. Patient states symptoms have improved. CT angiogram neck: There is a three-vessel branching pattern to the aortic arch. Origins of the great vessels appear to be patent. The right common carotid artery is widely patent. The left common carotid artery is widely patent. Both carotid bifurcations are unremarkable. Both right and left internal carotid arteries appear to be widely patent. Right vertebral artery is dominant. Both vertebral arteries appear to be widely patent. No stenosis is seen. CT angiogram head: Precontrast head CT demonstrate ventricles and sulci to be within normal limits. No sulcal effacement or midline shift is identified. There is no hemorrhage. There are delayed postcontrast images without abnormal enhancement. CT angiographic portion of the exam demonstrates the basilar artery to be widely patent. The right and left posterior cerebral arteries appear widely patent. The M1 and M2 segments of the right and left middle cerebral arteries appear to be widely patent. No large branch occlusion or thromboembolism is identified. Anterior cerebral arteries appear to be widely patent. No intracranial stenosis is seen. No definite aneurysm or vascular malformation is identified. IMPRESSION: Unremarkable CT angiogram of the head and neck. Dictated by: Dictated on workstation # [id number]
== END ==
LOC: RAD 11:16
PROVIDERS: ATTEND Nurse Practitioner Family
DX: M21.371 Foot drop, right foot (principal); R20.2 Paresthesia of skin
CPT/HCPCS: 70496; 70498; 70551